=== PATIENT | female | born 1960 | race Caucasian/White ===

== ENCOUNTER 2019-11-15 13:38 | Outpatient (CLI) | payer BC | END 2019-11-15 13:39 | disposition home or self-care (01) | LOC: COV 13:38 | PROVIDERS: ATTEND Naturopath | DX: Z01.84 Encounter for antibody response examination (principal); R22.43 Localized swelling, mass and lump, lower limb, bilateral; M79.676 Pain in unspecified toe(s) | CPT/HCPCS: 36415; 81599; 86769 ==

== ENCOUNTER 2019-11-23 16:18 | Outpatient (CLI) | payer BC ==
[2019-11-23 16:59] LABS: BASOPHILS # (AUTO) 0.1 10^3/uL (0.0-0.1); BASOPHILS % (AUTO) 1.2 %; EOSINOPHILS # (AUTO) 0.1 10^3/uL (0.0-0.7); EOSINOPHILS % (AUTO) 2.6 %; HGB - HEMOGLOBIN 12.6 g/dL (12.0-16.0); LYMPHOCYTES # (AUTO) 1.2 10^3/uL (1.5-3.5); LYMPHOCYTES % (AUTO) 24.2 %; MEAN CORPUSCULAR HGB CONC 32.4 g/dL (32.0-36.0); MEAN CORPUSCULAR VOLUME 92.6 fL (81.0-99.0); MEAN PLATELET VOLUME 9.5 fL (7.9-10.8); MONOCYTES # (AUTO) 0.3 10^3/uL (0.0-1.0); MONOCYTES % (AUTO) 5.7 %; NEUTROPHILS # (AUTO) 3.4 10^3/uL (1.5-6.6); NEUTROPHILS % (AUTO) 65.9 %; PLT - PLATELET COUNT 234 10^3/uL (130-450); RED CELL DISTRIBUTION WIDTH 13.1 % (12.0-15.0); WHITE BLOOD COUNT 5.1 x10^3/uL (4.8-10.8)
[2019-11-23 17:17] LABS: ALBUMIN/GLOBULIN RATIO 1.3 (1.0-2.2); ALKALINE PHOSPHATASE 52 IU/L (42-121); ALT ALANINE AMINOTRANSFERASE 14 IU/L (10-60); AST ASPARTATE AMINOTRANSFERASE 18 IU/L (10-42); BILIRUBIN,TOTAL 0.7 mg/dL (0.2-1.0); BUN - BLOOD UREA NITROGEN 13 mg/dL (6-20); CALCIUM 9.3 mg/dL (8.5-10.3); CARBON DIOXIDE - CO2 27 mmol/L (21-32); CHLORIDE 100 mmol/L (101-111); CREATININE 0.7 mg/dL (0.4-1.0); GLUCOSE 93 mg/dL (70-100); SODIUM 137 mmol/L (135-145)
[2019-11-23 17:22] LABS: CRP - C-REACTIVE PROTEIN < 1.0 mg/dL (0-1.0)
[2019-11-23 19:28] LABS: RHEUMATOID FACTOR NEGATIVE (Negative)
[2019-11-25 14:24] LABS: ANA SCREEN NEGATIVE (NEGATIVE)
== END 2019-11-23 16:19 | disposition home or self-care (01) ==
LOC: LAB 16:18
PROVIDERS: ATTEND Psychiatry & Neurology Neurology
DX: L95.9 Vasculitis limited to the skin, unspecified (principal)
CPT/HCPCS: 36415; 80053; 81599; 82310; 85025; 85613; 85651; 85730; 86038; 86140; 86147; 86235; 86430

== ENCOUNTER 2019-12-18 16:34 | Emergency (ER) | payer BC ==
--- NOTE | 2019-12-18 17:16 | XRAY Report ---
PROCEDURE: Foot 3 View LT INDICATIONS: Trauma TECHNIQUE: 3 views of the foot were acquired. COMPARISON: None. FINDINGS: Bones: There is a nondisplaced fracture at the base of the fifth metatarsal. Osseous densities are s een adjacent to the cuboid and calcaneus. No suspicious bony lesions. Mild degenerative joint disease is present. There is osteopenia. Soft tissues: No tibiotalar joint effusion. Achilles tendon appears normal. IMPRESSION: 1. Nondisplaced fifth metatarsal base fracture. 2. Osseous densities adjacent to the cuboid and calcaneus may be old fracture fragments. Please corre late with focal pain and tenderness. Reviewed by: Eliseo Barraza MD on 12/18/2019 5:14 PM PDT Approved by: Eliseo Barraza MD on 12/18/2019 5:14 PM PDT Station ID: [id number]
--- NOTE | 2019-12-18 18:04 | ED Physician Documentation ---
History of Present Illness - Stated complaint Stated Complaint: LT FOOT INJURY - Chief complaint Chief Complaint: Trauma Ext - History obtained from History obtained from: Patient - Additonal information Additional information: Patient comes emergency department complaining of left foot pain that began yesterday after she stepped up on a stair. Patient states she did not twist anything and did not feel like she had done anything specifically to injure herself. She states she felt several pops and had immediate pain in her foot and was not able to bear weight much because of the pain. Patient states as long as she is not bearing weight, and the foot does not hurt. Patient denies any other injuries. No prior injury to the foot. No other complaints at this time. Review of Systems Ten Systems: 10 systems reviewed and negative Constitutional: reports: Reviewed and negative Eyes: reports: Reviewed and negative Ears: reports: Reviewed and negative Nose: reports: Reviewed and negative Throat: reports: Reviewed and negative Cardiac: reports: Reviewed and negative Respiratory: reports: Reviewed and negative GI: reports: Reviewed and negative : reports: Reviewed and negative Skin: reports: Reviewed and negative Musculoskeletal: reports: Extremity pain, Pain with weight bearing Neurologic: reports: Reviewed and negative Psychiatric: reports: Reviewed and negative Endocrine: reports: Reviewed and negative Immunocompromised: reports: Reviewed and negative PD PAST MEDICAL HISTORY - Past Medical History Past Medical History: Yes Cardiovascular: None Respiratory: Asthma Neuro: Migraines, Other Endocrine/Autoimmune: None GI: GERD, Other 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 IBD - Past Surgical History General: Cholecystectomy, Appendectomy Ortho: Arthroscopic surgery /COLLAR STARCHER: section - Allergies Allergies/Adverse Reactions: Allergies Allergy/AdvReac Type Severity Reaction Status Date / Time codeine Allergy Unknown Verified 12/18/19 16:40 latex Allergy Unknown Verified 12/18/19 16:40 - Social History Does the pt smoke?: No Smoking Status: Never smoker Does the pt drink ETOH?: No Does the pt have substance abuse?: No - Immunizations Immunizations are current?: Yes PD ED PE NORMAL - Vitals Vital signs reviewed: Yes - General General: Alert and oriented X 3, No acute distress - HEENT HEENT: PERRL - Neck Neck: Supple, no meningeal sign - Cardiac Cardiac: Strong equal pulses - Respiratory Respiratory: No respiratory distress - Derm Derm: Warm and dry, Other (Contusion over left dorsolateral foot.) - Extremities Extremities: No deformity, Other (Patient has moderate edema and contusion of the left dorsal foot, especially of the lateral aspect. She has point t enderness over the proximal portion of her fifth metatarsal) - Neuro Neuro: Alert and oriented X 3, No motor deficit, No sensory deficit - Psych Psych: Normal mood, Normal affect Results - Vitals Vitals: Vital Signs - 24 hr 12/18/19 12/18/19 16:41 17:39 Temperature 36.8 C 37.4 C Heart Rate 90 84 Respiratory 18 16 Rate Blood Pressure 135/51 H 133/69 H O2 Saturation 100 99 Oxygen O2 Source Room air - Rads (name of study) L foot XR Radiology: Final report received, EMP read indepedently, See rad report (Final radiologist interpretation: Nondisplaced fifth metatarsal base fracture; osseous densities adjacent to the cuboid and calcaneus may be old fracture fragments. Please correlate with focal pain and tenderness.) PD MEDICAL DECISION MAKING - ED course Complexity details: reviewed results, re-evaluated patient, considered differential, d/w patient ED course: Patient was worked up with an x-ray of her left foot, which showed a nondisplaced fifth metatarsal base fracture. I discussed with the patient that she would need to wear the walking boot, but could also use crutches if she was not ready to bear weight yet. I have advised patient that she will need to follow-up with podiatry to determine whether further intervention is indicated for this fracture. Departure - Departure Disposition: 01 Home, Self Care Clinical Impression: Fracture, foot Qualifiers: Encounter type: initial encounter Fracture type: closed Laterality: left Qualified Code(s): S92.902A - Unspecified fracture of left foot, initial encounter for closed fracture Condition: Stable Instructions: ED Fx Foot Follow-Up: Philly Jorge DPM [Provider Admit Priv/Credential] - Pranay Villarreal DPM [Physician No Access] - Marie Berger DPM [Physician No Access] - Comments: Please wear the boot whenever you are bearing weight. You may also relieve the weight on your foot with the crutches. You have been given several options for podiatric follow-up. These call first thing in the morning to make an appointment for follow-up to discuss whether surgical management is necessary for this fracture.
[2019-12-18 18:24] VITALS: BP 132/69
== END 2019-12-18 18:35 | disposition home or self-care (01) ==
LOC: ED 16:34
DX: S92.355A Nondisplaced fracture of fifth metatarsal bone, left foot, initial encounter for closed fracture (principal); X50.9XXA Other and unspecified overexertion or strenuous movements or postures, initial encounter; Y93.H2 Activity, gardening and landscaping; Y92.007 Garden or yard of unspecified non-institutional (private) residence as the place of occurrence of the external cause
CPT/HCPCS: 99283; 99284